=== PATIENT | female | born 1985 | race Caucasian/White ===

== ENCOUNTER 2020-06-17 14:12 | Emergency (ER) | payer OTHER ==
[~2020-06-17] VITALS: Ht 167.6 cm; Wt 61.7 kg
[2020-06-17 15:58] LABS: ABSOLUTE LYMPHOCYTES 2.4 thou/uL (0.8-5.3); ABSOLUTE MONOCYTES 0.6 thou/uL (0.0-1.2); ABSOLUTE NEUTROPHILS 5.3 thou/uL (1.6-8.1); BASOPHILS 0.5 %; EOSINOPHILS 0.1 %; HEMATOCRIT 39.8 % (37.0-47.0); HEMOGLOBIN 13.5 gm/dL (12.0-15.0); LYMPHOCYTES 29.2 %; MCH 30.2 pg (26.0-34.0); MCHC 33.9 g/dL (28.0-37.0); MCV 88.9 fL (80.0-100.0); MONOCYTES 7.1 %; MPV 7.7 fl. (7.2-11.1); NUCLEATED RBCS 0 /100WBC; PLATELET COUNT* 451 thou/uL (150-400); POLYS 63.1 %; RBC 4.48 mil/uL (4.20-5.00); RDW-CV 13.5 % (10.5-14.5); WBC 8.4 thou/uL (4.0-11.0)
[2020-06-17 16:06] LABS: CALCIUM 9.1 mg/dL (8.5-10.1); CREATININE 0.7 mg/dL (0.6-1.3); POTASSIUM 3.2 mmol/L (3.5-5.1)
[2020-06-17 16:11] LABS: TOTAL BILIRUBIN 0.6 mg/dL (<0.1-1.0); TOTAL PROTEIN 7.7 g/dL (6.4-8.2)
[2020-06-17 16:16] LABS: INFLUENZA A ANTIGEN Negative (Negative); INFLUENZA B ANTIGEN Negative (Negative)
[2020-06-17 16:51] LABS: URINE BILIRUBIN NEGATIVE (Negative); URINE BLOOD NEGATIVE (Negative); URINE CLARITY CLEAR; URINE COLOR YELLOW; URINE GLUCOSE-RANDOM NEGATIVE (Negative); URINE KETONES NEGATIVE (Negative); URINE LEUKOCYTES-REFLEX TRACE (Negative); URINE NITRITE-REFLEX NEGATIVE (Negative); URINE PROTEIN NEGATIVE (Negative); URINE UROBILINOGEN 0.2 E.U./dl (0.2-1.0)
[2020-06-17 17:03] LABS: MUCUS None Seen strn/LPF (None Seen); SQUAMOUS >10 Many /LPF (0-3)
[2020-06-17 17:04] LABS: CASTS None Seen /LPF (None Seen); CRYSTALS None Seen /LPF (None Seen); URINE RBC 0-2 Rare /HPF (0-2); URINE WBC-REFLEX 0-5 Rare /HPF (0-5)
[2020-06-17 17:05] LABS: BACTERIA-REFLEX None Seen /HPF (None Seen)
[2020-06-17] MEDS ORDERED: PROMS25 WY RECTAL (18:21)
[2020-06-17] MEDS ORDERED: ONDANSETRON ODT4 MG PO (18:21)
[2020-06-17] MEDS ORDERED: HYDROCODON-ACE1 EAC7 PO (18:27)
[2020-06-17 18:32] VITALS: BP 108/70
== END 2020-06-17 18:33 | disposition home or self-care (01) ==
LOC: M.ERS 14:12
PROVIDERS: Physician Assistant
DX: K52.9 Noninfective gastroenteritis and colitis, unspecified (principal); Z20.822 Contact with and (suspected) exposure to COVID-19; R11.2 Nausea with vomiting, unspecified; Z88.8 Allergy status to other drugs, medicaments and biological substances; Z88.6 Allergy status to analgesic agent; M79.602 Pain in left arm